=== PATIENT | female | born 1990 | race Hispanic/Latino ===

== ENCOUNTER 2021-08-16 22:14 | Inpatient (IN) | payer MEDICAID ==
[~2021-08-16] VITALS: Ht 160 cm; Wt 76.2 kg
[2021-08-16] MEDS ORDERED: LACTATED RINGERS 1000ML 1,000 ML IV PRN (22:30)
[2021-08-16] MEDS ORDERED: EPHEDRINE SULFATE 50 MG/ML AMPULE IVP PRN (22:30)
[2021-08-16] MEDS ORDERED: PROMETHAZINE HCL 25 MG/ML 1ML AMPULE IM PRN (22:30)
[2021-08-16] MEDS ORDERED: LACTATED RINGERS 500 ML 500 ML IV PRN (22:30)
[2021-08-16] MEDS ORDERED: MEPERIDINE-PF 50 MG/ML SYG IVP PRN (22:30)
[2021-08-16] MEDS ORDERED: NALOXONE HCL 0.4 MG/1 ML ML IV PRN (22:30)
[2021-08-16 23:00] LABS: APPEARANCE,URINE Clear (CLEAR); BILIRUBIN,URINE Negative (NEGATIVE); COLOR,URINE Yellow (YELLOW); GLUCOSE, URINE (UA) Negative (NEGATIVE); KETONES,URINE Negative (NEGATIVE); LEUKOCYTE ESTERASE ,URINE Negative (NEGATIVE); NITRATE,URINE Negative (NEGATIVE); OCCULT BLOOD,URINE Negative (NEGATIVE); PROTEIN,URINE Negative (NEGATIVE); UROBILINOGEN,URINE 0.2 mg/dL (0.2-1.0)
[2021-08-16 23:19] LABS: HEMATOCRIT 29.7 % (36-48); MEAN CORPUSCULAR HEMOGLOBIN 24.9 pg (27.0-33.0); MEAN CORPUSCULAR VOLUME 75.6 fL (79-99); PLATELET COUNT (AUTO) 196 K/uL (130-400); RED BLOOD CELL COUNT(AUTO) 3.93 MIL/uL (4.00-5.50); RED CELL DISTRIBUTION WIDTH 19.9 % (11.0-15.5); WHITE BLOOD COUNT (AUTO) 8.3 K/uL (4.8-10.8)
[2021-08-17] MEDS ORDERED: OXYTOCIN-LR 20 UNITS/1000 ML 1,000 ML IV SCH ×2 (04:00→11:30)
[2021-08-17] MEDS ORDERED: FENTANYL CITRATE PF 50 MCG/1 ML 2ML VIAL ONE (07:52)
[2021-08-17] MEDS ORDERED: MISOPROSTOL 200 MCG TABLET ONE (10:59)
[2021-08-17] MEDS ORDERED: METHYLERGONOVINE MALEATE 0.2 MG/1 ML ML ONE (10:59)
[2021-08-17] MEDS ORDERED: LIDOCAINE HCL 1% 20 ML VIAL ONE (10:59)
[2021-08-17] MEDS ORDERED: ACETAMINOPHEN 325 MG TAB PO PRN (11:30)
[2021-08-17] MEDS ORDERED: DIPH,PERTUSS(ACELL),TET VAC/PF 0.5 ML VIAL IM PRN (11:30)
[2021-08-17] MEDS ORDERED: ACETAMINOPHEN WITH CODEINE 1 TAB TAB PO PRN (11:30)
[2021-08-17] MEDS ORDERED: BENZOCAINE/LANOLIN/ALOE VERA 60 ML AEROSOL TP PRN (11:30)
[2021-08-17] MEDS ORDERED: MEASLES/MUMPS/RUBELLA VACCINE, LIVE 0.5 ML/VIAL SQ PRN (11:30)
[2021-08-17] MEDS ORDERED: WITCH HAZEL 1 PAD TP PRN (11:30)
[2021-08-17] MEDS ORDERED: LANOLIN 30GM OINTMENT TP PRN (11:30)
[2021-08-17] MEDS ORDERED: ACETAMINOPHEN 500 MG TABLET PO SCH (12:30)
[2021-08-17] MEDS: OXYTOCIN-LR 20 UNITS/1000 ML 1,000 ML IV SCH ×2 (12:33→22:30)
[2021-08-17] MEDS: IBUPROFEN 600 MG TABLET PO PRN ×2 (14:32→21:30)
[2021-08-17 15:54] VITALS: BP 117/69
[2021-08-17] MEDS ORDERED: VALA500T PO (16:05)
[2021-08-17] MEDS ORDERED: PNV1TABL17 PO (16:05)
[2021-08-17 19:16] VITALS: BP 103/74
[2021-08-17] MEDS: DOCUSATE SODIUM 100 MG CAP PO SCH (21:30)
[2021-08-17 22:55] VITALS: BP 97/61
[2021-08-18 03:15] VITALS: BP 101/54
[2021-08-18 06:12] LABS: HEPATITIS Bs ANTIGEN SCREEN P Negative (Negative)
[2021-08-18 07:26] VITALS: BP 107/71
[2021-08-18] MEDS: IBUPROFEN 600 MG TABLET PO PRN ×2 (08:14→13:59)
[2021-08-18] MEDS: DOCUSATE SODIUM 100 MG CAP PO SCH (08:14)
[2021-08-18 11:40] VITALS: BP 116/56
[2021-08-18] MEDS ORDERED: IBUP-2077 PO (14:01)
[2021-08-18] MEDS ORDERED: DOCU-116 PO (14:01)
== END 2021-08-18 14:35 | disposition home or self-care (01) | DRG 560 ==
LOC: LDH 22:14 → WSH 08-17 15:49
PROVIDERS: ADMIT Obstetrics & Gynecology; ATTEND Obstetrics & Gynecology
PROC: 10E0XZZ Delivery of Products of Conception, External Approach (ICD-10-PCS; principal; 2021-08-17)
PROC: 10907ZC Drainage of Amniotic Fluid, Therapeutic from Products of Conception, Via Natural or Artificial Opening (ICD-10-PCS; 2021-08-17)
PROC: 3E033VJ Introduction of Other Hormone into Peripheral Vein, Percutaneous Approach (ICD-10-PCS; 2021-08-17)
PROC: 3E0R3BZ Introduction of Anesthetic Agent into Spinal Canal, Percutaneous Approach (ICD-10-PCS; 2021-08-17)
PROC: 00HU33Z Insertion of Infusion Device into Spinal Canal, Percutaneous Approach (ICD-10-PCS; 2021-08-17)
PROC: 3E0234Z Introduction of Serum, Toxoid and Vaccine into Muscle, Percutaneous Approach (ICD-10-PCS; 2021-08-17)
PROC: 3E0134Z Introduction of Serum, Toxoid and Vaccine into Subcutaneous Tissue, Percutaneous Approach (ICD-10-PCS; 2021-08-17)
DX: O99.02 Anemia complicating childbirth (principal); O71.82 Other specified trauma to perineum and vulva; Z37.0 Single live birth; Z3A.39 39 weeks gestation of pregnancy; Z23 Encounter for immunization
CPT/HCPCS: 36415; 81003; 85027; 86592; 86701; 86850; 86900; 86901; 87340; 87390; 90707; 90715; A4314; G0378; J2210; J2590; J3010; J7120

== ENCOUNTER 2024-07-30 12:07 | Emergency (ER) | payer BC, MEDICAID ==
[~2024-07-30] VITALS: Ht 162.6 cm; Wt 76.2 kg
[~2024-07-30 12:07] MED LIST: DOCU-116 PO; IBUP-2077 PO; PNV1TABL17 PO; VALA500T PO
--- NOTE | 2024-07-30 12:27 | ERN ---
ED Note History of Present Illness Stated Complaint: OB Chief Complaint: Vaginal Bleeding Time Seen by MD: 12:22 Dictation: PATIENT IS A 33-YEAR-OLD FEMALE WHO IS APPROXIMATELY SEVEN WEEKS COMING IN WITH COMPLAINTS OF PAINLESS VAGINAL SPOTTING ONSET1 HOUR PRIOR TO ARRIVAL. , PATIENT OF DR. PONCE . SHE STATES SHE HAD A PRIOR ULTRASOUND AT SIX WEEKS, IT DID NOT SHOW ANYTHING AND WAS TOLD TO COME BACK IN TWO WEEKS. Allergies: Coded Allergies: No Known Drug Allergies (Unverified Allergy, Unknown, 08/16/21) Home Meds Reported Medications Docusate Sodium (Colace) 100 Mg Capsule, 100 MG PO BID, CAP 08/18/21 Ibuprofen (Ibuprofen 800 mg Tab) 800 Mg Tab, 800 MG PO Q6H PRN for PAIN, TAB 08/18/21 Valacyclovir HCl (Valtrex) 500 Mg Tablet, 500 MG PO BID, TAB 08/17/21 Pnv Cmb#21/Iron/Folic Acid ( Complete Caplet) 1 Each Tablet, 1 EACH PO DAILY, TAB 08/17/21 Past Medical History Past Medical History: No Pertinent History Surgical History: None PSYCH History: no pertinent psych hx : 3 Para: 2 RN Note Reviewed/Agreed w/PFSH: Yes Review of System Dictation CONSTITUTIONAL: NEGATIVE EXCEPT FOR HPI HEAD/FACE: NEGATIVE EXCEPT FOR HPI EENT: NEGATIVE EXCEPT FOR HPI RESPIRATORY: NEGATIVE EXCEPT FOR HPI GASTROINTESTINAL/ABDOMINAL: NEGATIVE EXCEPT FOR HPI GENITOURINARY: NEGATIVE EXCEPT FOR HPI VAGINAL SPOTTING, PAINLESS MUSCULOSKELETAL: NEGATIVE EXCEPT FOR HPI INTEGUMENTARY: NEGATIVE EXCEPT FOR HPI NEUROLOGICAL/PSYCH: NEGATIVE EXCEPT FOR HPI HEMATOLOGIC/LYMPHATIC: NEGATIVE EXCEPT FOR HPI ALL SYSTEMS NEGATIVE, EXCEPT NOTED ABOVE. 13 POINT REVIEW OF SYSTEMS ASSESSED AND ALL NEGATIVE EXCEPT FOR ABOVE. Initial Vital Sign VS Vital Signs Date Time Temp Pulse Resp B/P (MAP) Pulse Ox O2 Delivery O2 Flow Rate FiO2 07/30/24 12:10 98.6 93 18 131/85 99 07/30/24 12:24 Room Air* 0 21 Physical Exam Dictation VITAL SIGNS REVIEWED RADHA RN IN ROOM WITH THE EXAM. GENERAL APPEARANCE: ALERT, ORIENTED X 3, NO ACUTE DISTRESS, WELL DEVELOPED, NOURISHED. HEAD AND FACE: NON-TRAUMATIC. EYES: PERRL, PINK CONJUNCTIVAS, EYELID NO TRAUMA, ANTERIOR CHAMBER WITH ARCUS SENILIS. EARS: PINNAS INTACT AND NO SIGNS OF TRAUMA OR ERYTHEMA EAR CANALS CLEAR AND NO DISCHARGE TM NO ERYTHEMA NOSE: NO DISCHARGE, NO BLEEDING. OROPHARYNX: MOUTH NORMAL, TONGUE PINK, PHARYNX CLEAR,NO ERYTHEMA, TONSILS NO EXUDATES, NO ABSCESSES NOTED, MUCOUS MEMBRANE MOIST NECK: SUPPLE, NON-TENDER, NO THYROMEGALY, NO MASSES, NO JVD, NO BRUITS BREAST:DEFERRED CHEST:NO TENDERNESS, NO CREPITUS, NO PARADOXICAL MOVEMENT, NO RETRACTIONS LUNGS:CLEAR, WELL-VENTILATED, SYMMETRIC, NO RALES, NO WHEEZING, NO RHONCHI, NO STRIDOR, GOOD BREATH SOUNDS BILATERALLY HEART: REGULAR RATE, REGULAR RHYTHM, NO MURMUR, NO GALLOPS VASCULAR: NO PERIPHERAL EDEMA, ABDOMEN: SOFT, POSITIVE BOWEL SOUNDS, NONDISTENDED, NO GUARDING, NONTENDER, NO REBOUND, NO MASSES NO HEPATOMEGALY, NO SPLENOMEGALY, NO VILLALBA'S SIGN, NO HERNIAS. RECTAL: DEFERRED GENITAL: EXTERNAL EXAM NEGATIVE, OS IS OPEN WITH 4-5 ML OF BLAIR BLOOD WITH SOME TISSUE IN THE VAULT. NO TENDERNESS NO LESIONS NEUROLOGICAL: NORMAL SPEECH, MOTOR FUNCTION INTACT, SENSORY FUNCTION INTACT MUSCULOSKELETAL: NECK NONTENDER, FULL RANGE OF MOTION, BACK NONTENDER, FULL RANGE OF MOTION, EXTREMITIES: NONTENDER, FULL RANGE OF MOTION SKIN: COLOR PINK, DRY, NO TURGOR, NO RASH, NO LACERATIONS, NO ABRASIONS, NO CONTUSIONS. LYMPHATIC: DEFERRED Results (Laboratory/Radiology) Laboratory/Radiology Laboratory Tests Test 07/30/24 12:56 White Blood Count 3.6 K/uL (4.8-10.8) L Red Blood Count 4.58 MIL/uL (4.00-5.50) Hemoglobin 12.7 g/dL (12.0-16.0) Hematocrit 37.9 % (36-48) Mean Corpuscular Volume 82.8 fL (79-99) Mean Corpuscular Hemoglobin 27.7 pg (27.0-33.0) Mean Corpuscular Hemoglobin Concent 33.5 g/dL (32.0-36.0) Red Cell Distribution Width 13.2 % (11.0-15.5) Platelet Count 198 K/uL (130-400) Mean Platelet Volume 10.5 fL (7.5-10.5) Immature Granulocyte % (Auto) 0.3 % (0-1) Neutrophils (%) (Auto) 51.8 % (40.0-77.0) Lymphocytes (%) (Auto) 39.4 % (21.0-51.0) Monocytes (%) (Auto) 7.4 % (3.0-13.0) Eosinophils (%) (Auto) 0.8 % (0.0-8.0) Basophils (%) (Auto) 0.3 % (0.0-5.0) Neutrophils # (Auto) 1.9 K/uL (1.8-7.7) Lymphocytes # (Auto) 1.4 K/uL (1.0-4.8) Monocytes # (Auto) 0.3 K/uL (0.1-1.0) Eosinophils # (Auto) 0.03 K/uL (0.00-0.70) Basophils # (Auto) 0.01 K/uL (0.00-0.20) Absolute Immature Granulocyte (auto 0.01 K/uL (0-1) Nucleated Red Blood Cells 0.0 % (0.0-0.19) Sodium Level 136 mmol/L (136-145) Potassium Level 3.8 mmol/L (3.5-5.1) Chloride Level 102 mmol/L (101-111) Carbon Dioxide Level 28 mmol/L (21-32) Blood Urea Nitrogen 8 mg/dL (7-18) Creatinine 0.7 mg/dL (0.5-1.0) Glomerular Filtration Rate Calc 118 mL/min (>90) Random Glucose 96 mg/dL (70-105) Total Calcium 8.7 mg/dL (8.5-10.1) Human Chorionic Gonadotropin, Quant 7076 mIU/mL (0-5) H OB ULTRASOUND DEMONSTRATES SAC WITH NO POLE NO HEART RATE. QUESTIONABLE EARLY VERSUS BLIGHTED Labs Reviewed?: Yes ED Course ED Course Orders Procedure Category Date Status Time *Nursing CPOE 07/30/24 Transmitted Communication: 12:24 Cbc With Differential LAB 07/30/24 Complete 12: Hcg,Quantitative LAB 07/30/24 Complete 12:24 Us Ob <14 Weeks US 07/30/24 Resulted 12:24 Type And Screen BBK 07/30/24 Complete 12:24 Basic Metabolic Panel LAB 07/30/24 Complete 12:24 Vital Signs Date Time Temp Pulse Resp B/P (MAP) Pulse Ox O2 Delivery O2 Flow Rate FiO2 07/30/24 14:43 98.2 90 20 115/83 99 Room Air* 0 21 07/30/24 12:24 98.2 94 16 111/73 100 Room Air* 0 21 07/30/24 12:10 98.6 93 18 131/85 99 FOURTEEN 15, PATIENT WILL BE DISCHARGED HOME WITH THREATENED MISCARRIAGE. SHE IS AWARE THE PRACTICE PELVIC REST NO SEX OF ANY KIND UNTIL CLEARED BY HER DOCTOR ON SATURDAY. Medical Decision Making MDM MDM: DIFFERENTIAL DIAGNOSIS: INCOMPLETE A B VERSUS A BEE THROUGH VERSUS THREATENED A B VERSUS ELECTROLYTE IMBALANCE VERSUS DEHYDRATION RATIONALE: TESTS CONSIDERED AND ORDERED SECONDARY TO SHARED DECISION MAKING INCLUDE: ULTRASOUND/LABS PREVIOUS OUTSIDE RECORDS REVIEWED: OLD ER VISITS. REVIEWED RISK OF COMPLICATION AND/OR MORBIDITY OR MORTALITY OF PATIENT MANAGEMENT: NONE MEDICATIONS-PER MEDICATION RECONCILIATION SEE NURSE'S NOTES NEED FOR HOSPITALIZATION: PATIENT DOES NOT MEET CRITERIA FOR HOSPITALIZATION. NO NEED FOR EMERGENCY MAJOR/MINOR SURGERY: NO THERE ARE NO SOCIAL CONCERNS WITH THIS PATIENT. PRESCRIPTION DRUG MANAGEMENT NONE, PATIENT GIVEN INSTRUCTIONS ON PELVIC REST AND NO SEX UNTIL CLEARED BY HER DOCTOR ON SATURDAY. PRESCRIPTIONS WILL INCLUDE SYMPTOMATIC CARE PATIENT'S PRIOR EXTERNAL MEDICAL RECORDS FROM OTHER ER VISITS WERE REVIEWED BY ME INDICATED. PRIOR TESTING AND RESULTS FROM PREVIOUS VISITS WERE REVIEWED. PRIOR TESTS WERE TAKEN INTO ACCOUNT WITH MEDICAL DECISION MAKING AND RESOURCE UTILIZATION, INDEPENDENT HISTORIAN/HISTORIANS WERE USED TO OBTAIN COMPLETE MEDICAL HISTORY. I INDEPENDENTLY INTERPRETED THE TEST THAT WERE PERFORMED, RESULTS WERE REVIEWED BY ME AND CONSIDERED FINDINGS ON RADIOLOGY IF ORDERED. MEDICAL MANAGEMENT AND EXAMINATION INTERPRETATION DISCUSSIONS WERE HAD BY ME WITH OTHER QUALIFIED HEALTHCARE PROFESSIONALS INDICATED FOR THE PATIENT'S CARE. DX & DISP Disposition: Discharge Departure Impression: Primary Impression: Threatened miscarriage in early Additional Impression: Vaginal bleeding affecting early Condition: Stable Additional Instructions: FOLLOW-UP WITH PRIMARY CARE PROVIDER IN 1 TO 2 DAYS. TAKE MEDICATIONS DIRECTED HERE IN THE EMERGENCY ROOM. OKAY TO CONTINUE HOME MEDICATIONS UNLESS OTHERWISE DISCUSSED DURING YOUR VISIT IN THE EMERGENCY ROOM TODAY. RETURN TO YOUR NEAREST EMERGENCY ROOM IF SYMPTOMS WORSEN OR IF THERE IS NO IMPROVEMENT. CALL 911 IF YOU NEED IMMEDIATE ASSISTANCE. TAKE TYLENOL [id number] NEE DED AND IF NO CONTRAINDICATIONS ARE PRESENT. INCREASE ORAL HYDRATION. A WOUND CULTURE OR URINE CULTURE WAS ORDERED HERE IN THE EMERGENCY ROOM DEPARTMENT PLEASE FOLLOW-UP WITH PRIMARY CARE PROVIDER AND ADVISE THEM TO GET REPEAT PORTS FROM OUR FACILITY. IF YOU HAD ANY MCKAYLA WRAP/SPLINTS THAT WERE APPLIED HERE, PLEASE DO NOT REMOVE THEM UNTIL YOU SEE YOUR PRIMARY CARE OR SPECIALTY. PELVIC REST AND NO SEX OF ANY KIND UNTIL CLEARED BY YOUR LUNCH WAGON OPERATOR ON SATURDAY. RETURN TO THE EMERGENCY ROOM IMMEDIATELY IF HEMORRHAGING OR BLEEDING BECOMES MORE SEVERE. Referrals: JANAE PONCE MD (PCP) Time of Disposition: 14:19 I have reviewed the case, and I agree with, Diagnosis and Plan I performed a substantive portion of the visit. I have reviewed and personally made and approve the management plan that is documented in the notes by myself with SUSANNE/resident. I acknowledged full responsibility for the patient's management plan. ADI SALGUERO NP Jul 30, 2024 12:27 RENE CARRASCO DO Jul 30, 2024 16:30
--- NOTE | 2024-07-30 12:56 | HMCIMG ---
ULTRASOUND OF THE PELVIS ULTRASOUND ABD VASCULAR LIMITED INDICATION: Vaginal bleeding COMPARISONS: None TECHNIQUE: Transabdominal real-time sonographic images were acquired earlier, and subsequently made available for review. FINDINGS: The uterus measures 12.8 x 6.0 x 6.9 cm. The uterus is normal in echotexture and contour. Single intrauterine gestational sac measures 2.0 cm and corresponds to estimated sonographic gestational age of 5 weeks 5 days, but pole was not well demonstrated. Yolk sac is barely visualized. The right ovary measures 2.8 x 2.0 x 1.8 cm. The right ovary is normal in size, shape and echogenicity. No right adnexal masses demonstrated. Color Doppler flow is normal throughout the right ovary. Spectral Doppler analysis demonstrates a normal waveform pattern. The left ovary measures 2.6 x 2.1 x 1.9 cm. The left ovary is normal in size, shape and echogenicity. No left adnexal masses demonstrated. Color Doppler flow is normal throughout the left ovary. Spectral Doppler analysis demonstrates a normal waveform pattern. No free pelvic fluid demonstrated. IMPRESSION: Findings suggesting early intrauterine gestation. Correlation with beta-hCG levels and short-term follow-up sonographic imaging is recommended.
[2024-07-30 13:04] LABS: BASOPHILS # (AUTO) 0.01 K/uL (0.00-0.20); BASOPHILS % (AUTO) 0.3 % (0.0-5.0); EOSINOPHILS # (AUTO) 0.03 K/uL (0.00-0.70); EOSINOPHILS % (AUTO) 0.8 % (0.0-8.0); HEMATOCRIT 37.9 % (36-48); IMMATURE GRANULOCYTE ABSOLUTE 0.01 K/uL (0-1); LYMPHOCYTES # (AUTO) 1.4 K/uL (1.0-4.8); LYMPHOCYTES % (AUTO) 39.4 % (21.0-51.0); MEAN CORPUSCULAR HEMOGLOBIN 27.7 pg (27.0-33.0); MEAN CORPUSCULAR HGB CONC 33.5 g/dL (32.0-36.0); MEAN CORPUSCULAR VOLUME 82.8 fL (79-99); MONOCYTES # (AUTO) 0.3 K/uL (0.1-1.0); MONOCYTES % (AUTO) 7.4 % (3.0-13.0); NEUTROPHILS # (AUTO) 1.9 K/uL (1.8-7.7); NEUTROPHILS % (AUTO) 51.8 % (40.0-77.0); PLATELET COUNT (AUTO) 198 K/uL (130-400); RED BLOOD CELL COUNT(AUTO) 4.58 MIL/uL (4.00-5.50); RED CELL DISTRIBUTION WIDTH 13.2 % (11.0-15.5); WHITE BLOOD COUNT (AUTO) 3.6 K/uL (4.8-10.8)
[2024-07-30 13:16] LABS: CREATININE 0.7 mg/dL (0.5-1.0); POTASSIUM 3.8 mmol/L (3.5-5.1)
[2024-07-30 14:43] VITALS: BP 115/83; PULSE 90; RESP 20; TEMP 98.3; O2SAT 99
== END 2024-07-30 14:47 | disposition home or self-care (01) ==
LOC: EDH 12:07
DX: O20.0 Threatened abortion (principal); Z3A.01 Less than 8 weeks gestation of pregnancy; Z79.624 Long term (current) use of inhibitors of nucleotide synthesis
CPT/HCPCS: 36415; 76801; 80048; 84702; 85025; 86850; 86900; 86901; 99284